=== PATIENT | female | born 1955 | race Caucasian/White ===

== ENCOUNTER → 2016-07-14 | Outpatient (CLI) | payer BC ==
[~2016-07-14] MED LIST: CALCCHW25 PO; DIPH2%T PO; FLON0.053; OMEP20TA PO; PRED20 PO; ROSU40 PO; SERT25TA83 PO
--- NOTE | 2016-07-14 12:42 | EKG ---
Date Performed: 07/14/2016 Time Performed: 09:45:38 PTAGE: 60 years EKG: Sinus rhythm NORMAL ECG NO PREVIOUS TRACING DOCTOR: Shaka Tripathi Interpretating Date/Time 07/14/2016 12:40:28
== END ==
LOC: HCAV 09:18
PROVIDERS: ATTEND Ophthalmology
DX: Z01.810 Encounter for preprocedural cardiovascular examination (principal)
CPT/HCPCS: 93005